=== PATIENT | male | born 1955 | race Caucasian/White ===

== ENCOUNTER 2020-06-17 06:25 | Day surgery (SDC) | payer OTHER ==
[~2020-06-17] VITALS: Ht 175.3 cm; Wt 127.0 kg
--- NOTE | ~2020-06-17 | OR ---
[facility] [address], [place] [address] Draft DATE OF OPERATION: 06/17/2020 SURGEON: Nat Alvarez MD PREOPERATIVE DIAGNOSES: 1. History of polyps x4 2017 (three hyperplastic and one tubular adenoma). 2. Multiple medical problems including hypertension, obesity, asthma. POSTOPERATIVE DIAGNOSES: 1. Sigmoid and left-sided diverticulosis. 2. Polyps x2 (transverse colon and sigmoid). PROCEDURE: Total colonoscopy to cecum with cold morcellation polypectomy x2. ANESTHESIA: Intravenous sedation, fentanyl 100 mcg and Versed 5 mg. INDICATION: This 65-year-old morbidly obese white man (280 pounds), 69 inches tall, underwent colonoscopy in 2017 at which time he was found to have 4 polyps, 3 of them hyperplastic, 1 of tubular adenoma. He also had diverticulosis. He is symptom free. Currently, having no bleeding, diarrhea, or constipation. He is admitted to undergo surveillance colonoscopy, understand the risk of bleeding, infection, and perforation. FINDINGS: The prep was excellent. Complete colonoscopy was undertaken to the cecum without question. Numerous diverticula of the sigmoid and left colon. Complete intubation of the cecum was accomplished. In the transverse colon, there was a small polyp that was quite clearly an adenoma, it was excised with cold morcellation technique. There was another polyp at the sigmoid which appeared possibly to be remnant of previous polyp. It could not be snared but was multiply biopsied. It may represent a nonpolypoid hyperplastic finding. DESCRIPTION OF PROCEDURE: The patient was brought to the endoscopy suite and placed in lateral decubitus position, given intravenous sedation to the point of slurred speech and nystagmus. Digital rectal examination was normal. An Olympus video colonoscope was passed in the rectum and manipulated throughout the PATIENT NAME: TUSHAR GUERRERO OPERATIVE REPORT DATE OF : 59 REPORT #: [id number] PHYSICIAN: NAT ALVAREZ MD PCP: LEONOR CALDERON MD REPORT IS CONFIDENTIAL AND NOT TO BE RELEASED WITHOUT AUTHORIZATION [facility] [address], [place] [address] Draft colon ultimately intubating the cecum. Numerous diverticula were seen in the sigmoid and left colon and scattered diverticula more proximally. Ileocecal valve was well identified as was the appendiceal orifice. The scope was withdrawn from that point and careful inspection upon withdrawal of the scope was undertaken. A small, probably 5 to 6 mm polyp was noted at the transverse colon. This was excised with cold morcellation technique. Photographs were taken. The scope was withdrawn further and at approximately the mid sigmoid at about 30-40 cm was an area that was suggestive of polyp, but not entirely typical warranted use of a snare. Despite efforts to do so, snare could not encircle the area. On that basis, cold morcellation biopsies were taken of the area. Further inspection showed it possibly to be only a hyperplastic portion of colon rather than true adenoma. Further withdrawal of the scope showed only diverticulosis. The scope was removed and the patient was taken to the recovery room in good condition. CONCLUDING DIAGNOSIS: Definitely 1 polyp in the transverse colon, completely excised; possible polypoid area, perhaps hyperplasia, biopsied. PLAN: Recommend repeat in 5 years, sooner if symptoms should occur including bleeding, diarrhea, or constipation. He will return to the ongoing care of Dr. Calderon otherwise. MD JESSE Calle/BK /[id number] cc: Leonor Calderon MD Copies: ~ PATIENT NAME: TUSHAR GUERRERO OPERATIVE REPORT DATE OF : 59 REPORT #: [id number] PHYSICIAN: NAT ALVAREZ MD PCP: LEONOR CALDERON MD REPORT IS CONFIDENTIAL AND NOT TO BE RELEASED WITHOUT AUTHORIZATION
[~2020-06-17 06:25] MED LIST: AMLODIPINE BESY10 MG PO; ASPIRIN EC81 MG PO; ATENOLOL100 MG PO; ATORVASTATIN CA40 MG PO; BACLOFEN10 MG PO; BENICAR HCT 401 EAC1 PO; BENICAR40 MG PO; CHLORTHALIDONE50 MG PO; COREG25 MG PO; IBUPROFEN600 MG PO; K-TAB ER20 MEQ PO; LIPITOR40 MG PO; PERCOCET 5-3251 EACH PO; PROCARDIA XL60 MG PO; TERAZOSIN HCL2 MG PO; VITAMIN D31000 UNI1 PO
--- NOTE | 2020-06-17 08:59 | NUR ---
06/17/20 0859 Mariel Isabel 0816 PT ARRIVED IN PACU SLEEPY WITH NO C/O'S. 0825 AT BEDSIDE TALKING WITH PT. ALL QUESTIONS ANSWERED. 0830 SITTING UP IN BED SIPPING ON JUICE. DC INSTRUCTIONS GIVEN. 0845 GETTING DRESSED. 0850 LEFT VIA W/C.
--- NOTE | 2020-06-18 18:00 | PATH ---
[facility] [address], [place] [address] Signed SPECIMEN(S): A TRANSVERSE COLON POLYP SPECIMEN(S): B SIGMOID POLYP SPECIMEN SOURCE: A. TRANSVERSE COLON POLYP B. SIGMOID POLYP CLINICAL HISTORY: History of polyps, history of tubular adenoma. Post-op: Diverticulitis, polyp x 1, possible polyp. Colonoscopy. MICROSCOPIC DESCRIPTION: Histologic sections of all submitted blocks are examined by light microscopy. These findings, together with the gross examination, support the pathologic diagnosis. FINAL PATHOLOGIC DIAGNOSIS: A. Colon, transverse, polyp, polypectomy: - Tubular adenoma. - Negative for high-grade dysplasia or malignancy. B. Colon, sigmoid, polyp, polypectomy: - Fragments of hyperplastic polyp. - Negative for dysplasia or malignancy. NAL:cml:C2NR GROSS DESCRIPTION: Two specimens are received in two containers, labeled "RC." A. The specimen, labeled "RC, 1," and designated on the requisition "transverse polyp," is received in formalin and consists of two conrad soft tissue fragments that measure 0.3 cm in greatest dimension. The specimen is entirely submitted in cassette (A1). B. The specimen, labeled "RC, 2," and designated on the requisition "sigmoid colon polyp," is received in formalin and consists of multiple conrad soft tissue fragments that measure 0.3 cm in greatest dimension. The specimen is entirely submitted in cassette (B1). AT (under the direct supervision of a pathologist) The Gross Description was prepared using a voice recognition system. The report was reviewed for accuracy; however, sound-alike word errors, addition and/or deletions may occur. If there is any question about this report, please contact Client Services. PERFORMING LABORATORY: PATIENT NAME: TUSHAR GUERRERO PATHOLOGY DATE OF : 59 REPORT #: [id number] PHYSICIAN: LISSY GRACE PCP: JANNA PHELPS MD REPORT IS CONFIDENTIAL AND NOT TO BE RELEASED WITHOUT AUTHORIZATION [facility] [address] [place] [address] Signed The technical component [place] [address] (Leadership Program Internship: Bianca Cutler MD; CLIA# [id number]). [facility], [address] [address] (CLIA# [id number]). Diagnostician: Xenia Cooper MD Pathologist Electronically Signed 06/18/2020 Copies: ~ PATIENT NAME: TUSHAR GUERRERO PATHOLOGY DATE OF : 59 REPORT #: [id number] PHYSICIAN: LISSY GRACE PCP: JANNA PHELPS MD REPORT IS CONFIDENTIAL AND NOT TO BE RELEASED WITHOUT AUTHORIZATION
== END 2020-06-17 08:50 | disposition home or self-care (01) ==
LOC: DS 06:25 → OPS 06:25 → DS 06:45 → OPS 08:50
PROVIDERS: ATTEND Surgery
PROC: 0DBL8ZX Excision of Transverse Colon, Via Natural or Artificial Opening Endoscopic, Diagnostic (ICD-10-PCS; 2020-06-17)
PROC: 0DBN8ZX Excision of Sigmoid Colon, Via Natural or Artificial Opening Endoscopic, Diagnostic (ICD-10-PCS; principal; 2020-06-17 06:45)
DX: D12.3 Benign neoplasm of transverse colon (principal); K57.90 Diverticulosis of intestine, part unspecified, without perforation or abscess without bleeding; E66.01 Morbid (severe) obesity due to excess calories; I10 Essential (primary) hypertension; J45.909 Unspecified asthma, uncomplicated; Z68.41 Body mass index [BMI] 40.0-44.9, adult; Z87.19 Personal history of other diseases of the digestive system; Z86.010 Personal history of colon polyps
CPT/HCPCS: 99153; G0500; J2250; J3010; J7121